=== PATIENT | female | born 1995 | race Two or more races ===

== ENCOUNTER 2023-08-01 19:54 | Inpatient (IN) | payer MEDICAID, OTHER ==
[~2023-08-01] VITALS: Ht 172.7 cm; Wt 200.0 kg
[2023-08-01 21:01] LABS: Basophils # (auto) 0 10 ^3/uL (0-0.2); Basophils % (auto) 0.1 % (0.0-2.0); Eosinophils # (auto) 0.1 10 ^3/uL (0-0.8); Eosinophils % (auto) 0.8 % (0.0-7.0); Hematocrit 40.9 % (36.0-46.0); Hemoglobin 13.5 g/dL (12.2-16.2); Lymphocytes % (auto) 27.5 % (10.0-50.0); Mean Corpuscular Hemoglobin 28.3 pg (28.0-32.0); Mean Corpuscular Volume 85.6 fL (80.0-100.0); Monocytes # (auto) 0.4 10 ^3/uL (0-1.3); Monocytes % (auto) 4.1 % (0.0-12.0); Neutrophils # (auto) 7.3 10 ^3/uL (1.6-8.6); Neutrophils % (auto) 67.5 % (37.0-80.0); Red Blood Cells 4.77 10^6/uL (4.0-5.20); White Blood Cell 10.9 10^3/uL (4.4-10.8)
[2023-08-01 21:24] LABS: Albumin 4.7 g/dL (3.2-4.8); Alkaline Phosphatase 95 U/L (46-116); Anion Gap 9 (5-15); Aspartate Aminotransferase 17 U/L (13-40); BUN/Creatinine Ratio 14.5 (10.0-20.0); Blood Urea Nitrogen 11 mg/dL (9-23); Calcium 9.9 mg/dL (8.5-10.1); Carbon Dioxide 23 mmol/L (20-30); Chloride 108 mmol/L (98-107); Glucose 130 mg/dL (74-106); Sodium 140 mmol/L (136-145)
[2023-08-01 21:25] LABS: Bilirubin, Total 0.2 mg/dL (0.2-1.0); Total Protein 7.2 g/dL (5.7-8.2)
[2023-08-01 21:26] LABS: Alanine Aminotransferase < 9 U/L (7-40)
[2023-08-01 21:43] LABS: Urine Bacteria None Seen /hpf (None Seen)
[2023-08-01 22:00] LABS: Urine Blood 1+ /uL (Negative); Urine Clarity Clear (Clear); Urine Color Light-Yellow (Yellow); Urine Protein, UAD Negative (Negative); Urine Specific Gravity 1.025 (1.001-1.035); Urine Urobilinogen Normal (Negative); Urine WBC <1 /hpf (0 - 5); Urine pH 5.5 (5.0-9.0)
[2023-08-02] MEDS: MORPHINE SULFATE 4 MG/ML SYR/VIAL IV ONE (01:30)
[2023-08-02] MEDS ORDERED: ONDANSETRON HCL 4 MG/2 ML VIAL IV PRN (03:30)
[2023-08-02] MEDS ORDERED: MORPHINE SULFATE INJ 2 MG/ml SYRG IV PRN (03:30)
[2023-08-02] MEDS: SODIUM CHLORIDE 0.9% 1,000 ML IV ONE (03:37)
[2023-08-02] MEDS: PANTOPRAZOLE 40 MG/10 ML VIAL INJ IV ONE (03:37)
[2023-08-02] MEDS: cefTRIAXone 1GM/50ML D5W 50 ML IV ONE (03:37)
[2023-08-02] MEDS: metroNIDAZOLE 500MG/100ML 100 ML IV ONE (03:37)
[2023-08-02 03:42] VITALS: BP 117/77; PULSE 71; RESP 20; TEMP 97.5; O2SAT 100
[2023-08-02 04:13] LABS: INR 0.95 (0.9-1.15); Partial Thromboplastin Time 27.1 SEC (24.5-34.5); Prothrombin Time 10.1 sec (9.3-11.8)
[2023-08-02] MEDS: ONDANSETRON ODT 4 MG TAB PO ONE (06:23)
[2023-08-02] MEDS: SODIUM CHLORIDE 0.9% 1,000 ML IV SCH (06:23)
[2023-08-02] MEDS ORDERED: metroNIDAZOLE 500MG/100ML 100 ML IV SCH (10:00)
[2023-08-02 13:24] LABS: Lipase 44 U/L (12-53)
[2023-08-03] MEDS ORDERED: cefTRIAXone 1GM/50ML D5W 50 ML IV SCH (09:00)
== END 2023-08-02 09:28 | disposition left against medical advice (07) ==
LOC: ER 19:54 → OVERFLOW 08-02 03:24
PROVIDERS: ADMIT Nurse Practitioner; ATTEND Internal Medicine
DX: K80.00 Calculus of gallbladder with acute cholecystitis without obstruction (principal); D72.829 Elevated white blood cell count, unspecified; Z53.29 Procedure and treatment not carried out because of patient's decision for other reasons
CPT/HCPCS: 36415; 76705; 80053; 81001; 83690; 84702; 85025; 85610; 85730; C9113; G0378; J3490; Q0162